=== PATIENT | female | born 1945 ===

== ENCOUNTER → 2023-11-23 01:23 | Outpatient (CLI) | payer MEDICARE, SELFPAY ==
--- NOTE | 2023-11-23 | DI.US_ITS ---
APPROVED REPORT EXAM: Comprehensive 2D, Doppler, and color-flow Echocardiogram Patient Location: Out-Patient Packaging Line Attendant: Sera Dias RDCS (AE) Indications: Mitral valve insufficiency Other Information Study Quality: Adequate Conclusion Mild concentric left ventricular hypertrophy. Normal left ventricular chamber size. EF is 55%. Wal l motion is normal Normal right ventricular size and function Mildly dilated left atrium. Normal right atrial size Aortic valve is sclerotic and trileaflet. There is severe aortic stenosis. Peak gradient is 58, sandra n 35 mmHg. Calculated aortic valve area 0.9 cm??. There is no aortic regurgitation Moderate mitral annular calcification. Moderate mitral regurgitation Estimated right ventricular systolic pressure is 34 mmHg Ascending aorta measures 4.01 cm Wall motion Left Ventricle The left ventricle is normal size. The left ventricular systolic function is normal. The left ventric ular ejection fraction is within the normal range. Mild concentric left ventricular hypertrophy. Ther e is normal LV segmental wall motion. There is no ventricular septal defect visualized. LVEF is 55%. Right Ventricle The right ventricle is normal size. The right ventricular systolic function is normal. Atria Left atrium is mildly dilated. The right atrium size is normal. The interatrial septum is intact with no evidence for an atrial septal defect. Aortic Valve Aortic valve is trileaflet and sclerotic severe aortic stenosis. Highest mean aortic valve gradient i s 35.33mmHg. Peak aortic valve gradient is 58.75mmHg. Calculated CARTER by the continuity equation is . 9cm2. No aortic regurgitation is present. Mitral Valve Moderate mitral annular calcification. No evidence of mitral valve stenosis. Moderate mitral regurgit ation. Tricuspid Valve The tricuspid valve is normal in structure. There is no tricuspid valve stenosis. Mild tricuspid regu rgitation. The RVSP is 33.9mmHg. Pulmonic Valve The pulmonary valve is normal in structure. There is no pulmonic valvular stenosis. Mild pulmonic reg urgitation. Great Vessels The aortic root is normal in size. The ascending aorta is mildly dilated. IVC is normal in size and c ollapses >50% with inspiration. Pericardium There is no pericardial effusion. 2D Dimensions IVSD d PLAX 1.20 cm F: 0.6-1.0 Ao Root d 2.71 cm F: 2.7 - 3.3 LVPW d PLAX 1.24 cm F: 0.6 - 1.0 Ao Asc Diam d 4.01 cm F: 2.3 - 3.1 LVID d PLAX 5.21 cm F: 3.8 - 5.2 LVDs 3.88 cm F: 2.2 - 3.5 LV EF Teichholz 50.0 % FS 25.53 % LV EDV (Teich) 130.1 mL LV ESV (Teich) 65.1 mL M-Mode TAPSE 2.59 cm (M/F) >1.7 Auto EF LV EDV A4C 177.2 mL LV EDV A2C 176.9 mL LV EDV BP 185.3 mL LV ESV A4C 83.0 mL LV ESV A2C 81.3 mL LV ESV BP 83.8 mL LVEF(%) A4C 53.2 % LVEF(%) A2C 54.1 % LVEF(%) BP 54.8 % LV SV A4C 94.2 ml LV SV A2C 95.6 ml LV SV BP 101.4 ml LV CO A4C 7.2 L/min LV CO A2C 7.0 L/min LV CO BP 7.1 L/min HR A4C 76.60 BPM HR A2C 72.73 BPM LV EDV Index (BP) LA Volume LA Length A4C 6.4 cm LA Length A2C 6.2 cm LA Area A4C s 27.39 cm2 LA Area A2C s 28.10 cm2 LA Vol A4C A-L 99.61 mL LA Vol A2C A-L 108.66 mL LA Vol Biplane A-L 105.9 mL LA Vol/BSA A4C A-L LA Vol/BSA A2C A-L LA Vol/BSA BP A-L 51.9 mL/m2 LA Vol A4C MOD 92.5 mL LA Vol A2C MOD 100.9 mL LA Vol BP MOD 98.2 mL RA Volume RA Area A4C 17.4 cm2 RA ESV A4C (A-L) 50.8mL RA Vol/BSA A4C A-L RA Length A4C 5.1 cm RA ESV A4C (MOD) 49.0mL LV Diastology MV E' medial 0.056 (>0.07 m/s) MV E Vmax 1.42 (0.4-1.3 m/s) MV E/E' MED 25.42 (<14) MV A Vmax 1.70 (0.4-1.3 m/s) MV E' lateral 0.077 (>0.1 m/s) E/A Ratio 0.8 MV E/E' LAT 18.41 (<14) MV E' Average 0.066 m/s MV E/E'(average) 21.35 Aortic Valve AoV Vmax 3.83 m/s LVOT Vmax 1.23 m/s AoV Peak Grad 58.8 mmHg LVOT Peak Grad 6.1 mmHg AoV Area (Vmax) 1.04 cm2 LVOT VTI 0.255 m AoV VTI 0.958 m LVOT Mean Grad 4.0 mmHg AoV Mean Adal. 2.78 m/s LVOT SV 82.70 mL AoV Mean Grad 35.3 mmHg LVOT Diam s 2.00 cm AoV Area (VTI) 0.86 cm2 Velocity Ratio 0.32 Mitral Valve MV DT 203 (160-240 msec) MV Vmax TIPS 1.96 m/s MV Mean Grad 7.7 (<2mmHg) MV PHT 80 msec MV Area PHT 2.76 cm2 MV VTI 0.441 m Pulmonary Valve PV Vmax 1.59 (0.5-1.5 m/s) RVOT Vmax 0.96 m/s PV Peak Grad 10.1 mmHg RVOT Peak Gr. 3.7 mmHg PV Mean Adal 1.15 m/s RVOT VTI 0.245 m PV Mean Grad 6.0 mmHg RVOT Mean Gr. 2.2 mmHg Tricuspid Valve RA Pressure 3.00 mmHg TR Vmax 2.78 m/s TV S' 0.14 m/s TR Peak Grad 30.9 mmHg RVSP (TR) 33.9 mmHg
== END ==
PROVIDERS: Visit Provider Family Medicine
DX: I34.0 Nonrheumatic mitral (valve) insufficiency (principal)
CPT/HCPCS: 93306